=== PATIENT | male | born 1960 | race Asian ===

== ENCOUNTER 2020-03-06 08:27 | Emergency (ER) | payer OTHER ==
[~2020-03-06] VITALS: Ht 180.3 cm; Wt 108.9 kg
[~2020-03-06 08:27] MED LIST: OPTIVAR0.05 % OP; POLYMYXIN B/ PO; SYSTANE BAL OP; TOBRAMYCIN0.3 % OP
[2020-03-06 08:39] VITALS: TEMP 98.2
[2020-03-06 09:55] LABS: PLATELET COUNT 189 K/uL (142-355)
[2020-03-06 09:57] LABS: POTASSIUM 3.9 mmol/L (3.6-5.2); SODIUM 141 mmol/L (136-145)
[2020-03-06 10:02] LABS: PARTIAL THROMBOPLASTIN TIME 29.9 SECONDS (24.5-33.6)
[2020-03-06 14:02] VITALS: BP 138/84
== END 2020-03-06 14:03 | disposition home or self-care (01) ==
LOC: ED 08:27
PROVIDERS: Family Medicine
DX: I10 Essential (primary) hypertension (principal); K58.8 Other irritable bowel syndrome; R11.0 Nausea
CPT/HCPCS: 36415; 80053; 81000; 82150; 82550; 83690; 84484; 85027; 85610; 85730; 87502; 93005; 99283

== ENCOUNTER 2020-05-12 11:13 | Outpatient (CLI) | payer OTHER | END 2020-05-12 20:56 | disposition home or self-care (01) | LOC: LAB 11:13 | DX: R05 Cough (principal); R19.7 Diarrhea, unspecified | CPT/HCPCS: 82272; 87015; 87045; 87324; 87328; 87329; 87425; 87449; 87899 ==

== ENCOUNTER 2020-08-12 12:54 | Outpatient (CLI) | payer BC, OTHER | END 2020-08-12 19:50 | disposition home or self-care (01) | LOC: LAB 12:54 | PROVIDERS: ATTEND Family Medicine | DX: R05 Cough (principal); R11.10 Vomiting, unspecified; R52 Pain, unspecified; Z11.59 Encounter for screening for other viral diseases | CPT/HCPCS: 87502; 87635; G2023; U0003 ==

== ENCOUNTER 2020-10-27 10:07 | Outpatient (CLI) | payer BC, OTHER | END 2020-10-27 21:32 | disposition home or self-care (01) | LOC: LAB 10:07 | PROVIDERS: ATTEND Family Medicine | DX: Z20.828 Contact with and (suspected) exposure to other viral communicable diseases (principal) | CPT/HCPCS: 87635; G2023; U0003 ==

== ENCOUNTER 2020-12-09 10:16 | Outpatient (CLI) | payer BC, OTHER | END 2020-12-09 19:54 | disposition home or self-care (01) | LOC: INF 10:16 | PROVIDERS: ATTEND Internal Medicine | DX: Z23 Encounter for immunization (principal) | CPT/HCPCS: 96372 ==

== ENCOUNTER 2020-12-29 10:13 | Outpatient (CLI) | payer BC, OTHER | END 2020-12-29 20:17 | disposition home or self-care (01) | LOC: INF | PROVIDERS: ATTEND Internal Medicine | DX: Z23 Encounter for immunization (principal) | CPT/HCPCS: 96372 ==